=== PATIENT | male | born 1990 | race Caucasian/White ===

== ENCOUNTER 2017-05-22 05:22 | Emergency (ER) | payer OTHER ==
[2017-05-22 05:31] VITALS: BP 137/80; PULSE 94; RESP 18; TEMP 97.3
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
[2017-05-22 06:41] LABS: Hepatitis B Surface Ag Index 0.05
[2017-05-22 06:46] LABS: Hepatitis B Core IgM Index 0.02
[2017-05-22 06:58] LABS: Hepatitis C Virus IgG Ab Negative (Negative)
== END 2017-05-22 06:08 | disposition home or self-care (01) ==
LOC: EC 05:22
DX: Z20.5 Contact with and (suspected) exposure to viral hepatitis (principal); F17.200 Nicotine dependence, unspecified, uncomplicated
CPT/HCPCS: 36415; 80074; 99283

== ENCOUNTER 2019-11-20 23:16 | Emergency (ER) | payer OTHER ==
[2019-11-20] MEDS ORDERED: SODIUM CHLORIDE 0.9% 1,000 ML IV ONE (23:28)
[2019-11-20 23:29] VITALS: RESP 18; TEMP 98
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
[2019-11-20 23:39] LABS: Appearance,Urine Clear (Clear); Bilirubin,Urine Negative (Negative); Blood,Urine Small (Negative); Color,Urine Colorless; Glucose,Urine (UA) Negative (Negative); Ketones,Urine Negative (Negative); Leukocyte Esterase,Urine Negative (Negative); Nitrite,Urine Negative (Negative); Protein,Urine Negative (Negative); Specific Gravity,Urine 1.001 (1.001-1.035); Urobilinogen,Urine <2.0 mg/dL (<2.0)
[2019-11-20 23:53] LABS: Amphetamine Screen,Urine Not Detected (NotDetected); Barbiturate Screen,Urine Not Detected (NotDetected); Benzodiazepines Screen,Urine Not Detected (NotDetected); Cocaine Screen,Urine Not Detected (NotDetected); Methadone Screen, Urine Not Detected (NotDetected); Opiate Screen,Urine Not Detected (NotDetected); Oxycodone Screen, Urine Not Detected (NotDetected); Phencyclidine Screen,Urine Not Detected (NotDetected); Tricyclic Antidepressant,Urine Not Detected (NotDetected); Urn Cannabinoid Scrn Not Detected (NotDetected)
[2019-11-20 23:58] LABS: Basophils # (A) 0.1 k/uL (0-0.2); Basophils % (A) 1 %; Eosinophils # (A) 0.3 k/uL (0-0.7); Eosinophils % (A) 4 %; HCT 45.8 % (39.0-53.0); HGB 15.4 gm/dL (13.0-17.5); Lymphocytes # (A) 2.3 k/uL (1.0-4.8); Lymphocytes % (A) 30 %; MCH 30.3 pg (25.0-35.0); MCHC 33.5 g/dL (31.0-37.0); MCV 90.4 fL (80.0-100.0); Monocytes # (A) 0.7 k/uL (0-1.0); Monocytes % (A) 10 %; Neutrophils # (A) 4.1 k/uL (1.3-7.7); Neutrophils % (A) 53 %; Platelet Count 298 k/uL (150-450); RBC 5.07 m/uL (4.30-5.90); RDW 12.3 % (11.5-15.5); WBC 7.7 k/uL (3.8-10.6)
[2019-11-20 23:59] LABS: ALT 37 U/L (4-49); AST 65 U/L (17-59); African American GFR (CKD) >90 (>60 ml/min/1.73 sqM); Albumin 5.2 g/dL (3.5-5.0); Alkaline Phosphatase 63 U/L (38-126); Anion Gap 13 mmol/L; Blood Urea Nitrogen 15 mg/dL (9-20); Calcium 9.8 mg/dL (8.4-10.2); Carbon Dioxide 22 mmol/L (22-30); Chloride 110 mmol/L (98-107); Glucose 108 mg/dL (74-99); Magnesium 2.2 mg/dL (1.6-2.3); Non-African American GFR(CKD) >90 (>60 ml/min/1.73 sqM); Potassium 4.1 mmol/L (3.5-5.1); Sodium 145 mmol/L (137-145); Total Bilirubin 0.5 mg/dL (0.2-1.3); Total Protein 8.8 g/dL (6.3-8.2)
[2019-11-21 00:18] LABS: Alcohol 331 mg/dL
--- NOTE | 2019-11-21 00:18 | CT ---
EXAMINATION TYPE: CT brain nuha wo con DATE OF EXAM: 11/21/2019 COMPARISON: None HISTORY: Patient presents with head and neck pain after fall. CT DLP: 1268.3 mGycm Automated exposure control for dose reduction was used. Multiple axial sections were obtained from the skull base to T1 vertebra without contrast. Multiple a xial sections were obtained of the brain without contrast. FINDINGS: Ventricles have fairly normal size. There is no mass effect nor midline shift. There is no sign of in tracranial hemorrhage. The calvarium is intact. There is mucosal thickening ethmoid and maxillary sin uses. Cervical vertebra have normal alignment. There is degenerative disc space narrowing at C6-7. Facet patrick ints are intact. There is no evidence of a fracture. IMPRESSION: No acute intracranial abnormality. Sinusitis. Negative CT scan cervical spine. No fracture seen.
[2019-11-21 05:29] VITALS: BP 136/89; PULSE 91
== END 2019-11-21 05:30 | disposition home or self-care (01) ==
LOC: EC 23:16
DX: F10.129 Alcohol abuse with intoxication, unspecified (principal); S09.93XA Unspecified injury of face, initial encounter; R41.82 Altered mental status, unspecified; F17.200 Nicotine dependence, unspecified, uncomplicated; Y90.8 Blood alcohol level of 240 mg/100 ml or more; X58.XXXA Exposure to other specified factors, initial encounter
CPT/HCPCS: 36415; 80053; 83690; 83735; 85025; 81001; 80306; 72125; 70450; 99284; 96360; G0480; 80320

== ENCOUNTER 2021-09-06 09:55 | Emergency (ER) | payer OTHER ==
[2021-09-06 10:04] VITALS: BP 155/95; PULSE 102; RESP 18; TEMP 98.4
--- NOTE | 2021-09-06 10:31 | XR ---
EXAMINATION TYPE: XR KUB DATE OF EXAM: 09/06/2021 COMPARISON: NONE HISTORY: 30 years Male. STUDY INDICATION GIVEN: abdominal pain . TECHNIQUE: Upright abdominal radiograph IMPRESSION: Large stool burden. No intestinal obstruction. No abnormal calcification seen. No evidence for organo megaly. No significant osseous abnormality seen.
[2021-09-06] MEDS ORDERED: IOPAMIDOL CONTRAST (ORAL USE) VIAL PO PRN (10:38)
[2021-09-06 10:43] LABS: Basophils # (A) 0.1 k/uL (0-0.2); Basophils % (A) 1 %; Eosinophils # (A) 0.4 k/uL (0-0.7); Eosinophils % (A) 6 %; HCT 45.5 % (39.0-53.0); HGB 15.1 gm/dL (13.0-17.5); Lymphocytes # (A) 1.2 k/uL (1.0-4.8); Lymphocytes % (A) 16 %; MCH 31.5 pg (25.0-35.0); MCHC 33.2 g/dL (31.0-37.0); MCV 95.1 fL (80.0-100.0); Mean Platelet Volume 6.6; Monocytes # (A) 0.7 k/uL (0-1.0); Monocytes % (A) 9 %; Neutrophils # (A) 5.1 k/uL (1.3-7.7); Neutrophils % (A) 67 %; Platelet Count 314 k/uL (150-450); RBC 4.78 m/uL (4.30-5.90); RDW 13.1 % (11.5-15.5); WBC 7.5 k/uL (3.8-10.6)
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
[2021-09-06 10:52] LABS: ALT 41 U/L (4-49); AST 46 U/L (17-59); African American GFR (CKD) >90 (>60 ml/min/1.73 sqM); Alkaline Phosphatase 83 U/L (38-126); Amylase 87 U/L (30-110); Anion Gap 9 mmol/L; Blood Urea Nitrogen 12 mg/dL (9-20); Carbon Dioxide 23 mmol/L (22-30); Chloride 106 mmol/L (98-107); Creatine Kinase 555 U/L (55-170); Glucose 109 mg/dL (74-99); Lipase 148 U/L (23-300); Non-African American GFR(CKD) >90 (>60 ml/min/1.73 sqM); Potassium 4.2 mmol/L (3.5-5.1); Sodium 138 mmol/L (137-145); Total Bilirubin 0.8 mg/dL (0.2-1.3); Total Protein 8.7 g/dL (6.3-8.2)
[2021-09-06 11:04] LABS: Prothrombin Time 10.4 sec (9.0-12.0)
[2021-09-06 11:05] LABS: Partial Thromboplastin Time 21.8 sec (22.0-30.0)
[2021-09-06] MEDS ORDERED: HYDROmorphone 1 MG/ML 1 ML SYRINGE IVP STA (11:19)
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
== END 2021-09-06 12:55 | disposition home or self-care (01) ==
LOC: EC 09:55
DX: S30.1XXA Contusion of abdominal wall, initial encounter (principal); F17.200 Nicotine dependence, unspecified, uncomplicated; F12.90 Cannabis use, unspecified, uncomplicated; Y93.55 Activity, bike riding
CPT/HCPCS: 80053; 82150; 82550; 83605; 83690; 85025; 85610; 85730; 74018; 74177; 99284; 96374; J1170; Q9967

== ENCOUNTER 2022-01-25 19:48 | Emergency (ER) | payer OTHER ==
--- NOTE | 2022-01-25 20:17 | ED ---
General Adult HPI - General Chief complaint: Alcohol Stated complaint: [facility] Clearance Time Seen by Provider: 01/25/22 20:12 Source: patient Mode of arrival: ambulatory Limitations: no limitations - History of Present Illness Initial comments: Dictation was produced using [employer] dictation software. please excuse any grammatical, word or spelling errors. Chief Complaint: 31-year-old male brought in to the emergency department by [place] police for alcohol intoxication History of Present Illness: 31-year-old male is brought in by law enforcement. Patient is uncooperative. History of present illness obtained from enforcement was at the bedside. State that they were called for domestic situation. They arrived on scene and arrested the patient. Several alcoholic beverages. He to come back to the police station were he was given news that upset him. He began to act unresponsive. Did have really high alcohol levels. The sternal rotation however he did not respond. Patient is uncooperative with triage nurse. Unable to obtain ROS secondary to mental status. PHYSICAL EXAM: General Impression: Alert, inebriated, smells of EtOH, not in acute distress, handcuffed HEENT: Normocephalic atraumatic, extra-ocular movements intact, pupils equal and reactive to light bilaterally, mucous membranes moist. Cardiovascular: Heart regular rate and rhythm Chest: Able to complete full sentences, no retractions, no tachypnea Abdomen: abdomen soft, non-tender, non-distended, no organomegaly Musculoskeletal: Pulses present and equal in all extremities, no peripheral edema Motor: no focal deficits noted Neurological: CN II-XII grossly intact, no focal motor or sensory deficits noted Skin: Intact with no visualized rashes Psych: Aggressive ED course: 31-year-old male brought in to the emergency department for medical clearance for longterm. Patient is alcohol intoxicated. Initially he was behaving as if he was unresponsive in triage however when we move him from the wheelchair to the bed he began cursing at all of us. Patient no apparent distress. Laboratory evaluation obtained. CBC unremarkable. Metabolic panel shows sodium 147. Renal markers within acceptable limits. Serum alcohol 455. Patient reevaluated at 9:09 PM found to be stable medical condition. He is responsive however he is intoxicated of alcohol. According to family lawyer they have medical staff at the longterm they can manage alcohol withdrawals. Patient clear for longterm. - Related Data Previous Rx's Medication Instructions Recorded Ibuprofen 800 mg PO Q6HR PRN #20 tablet 09/06/21 Allergies Allergy/AdvReac Type Severity Reaction Status Date / Time No Known Allergies Allergy Verified 01/25/22 20:11 Review of Systems ROS Statement: Those systems with pertinent positive or pertinent negative responses have been documented in the HPI. ROS Other: All systems not noted in ROS Statement are negative. Past Medical History Past Medical History: No Reported History History of Any Multi-Drug Resistant Organisms: None Reported Past Surgical History: No Surgical Hx Reported Past Anesthesia/Blood Transfusion Reactions: No Reported Reaction Past Psychological History: No Psychological Hx Reported Smoking Status: Current every day smoker Past Alcohol Use History: Occasional Past Drug Use History: Marijuana - Past Family History Father Family Medical History: Diabetes Mellitus (Father has diabetes) General Exam Limitations: no limitations Course Vital Signs 01/25/22 01/25/22 19:52 20:34 Temperature 98.0 F 98.9 F Pulse Rate 66 98 Respiratory 18 20 Rate Blood Pressure 111/68 145/63 O2 Sat by Pulse 100 99 Oximetry Medical Decision Making - Lab Data Result diagrams: 01/25/22 20:27 01/25/22 20:27 Lab Results 01/25/22 01/25/22 Range/Units 20:27 20:27 WBC 7.5 (3.8-10.6) k/uL RBC 5.06 (4.30-5.90) m/uL Hgb 17.1 (13.0-17.5) gm/dL Hct 49.3 (39.0-53.0) % MCV 97.4 (80.0-100.0) fL MCH 33.7 (25.0-35.0) pg MCHC 34.6 (31.0-37.0) g/dL RDW 13.6 (11.5-15.5) % Plt Count 327 (150-450) k/uL MPV 6.6 Neutrophils % 57 % Lymphocytes % 19 % Monocytes % 13 % Eosinophils % 7 % Basophils % 1 % Neutrophils # 4.3 (1.3-7.7) k/uL Lymphocytes # 1.5 (1.0-4.8) k/uL Monocytes # 1.0 (0-1.0) k/uL Eosinophils # 0.5 (0-0.7) k/uL Basophils # 0.1 (0-0.2) k/uL Sodium 147 H (137-145) mmol/L Potassium 3.8 (3.5-5.1) mmol/L Chloride 104 (98-107) mmol/L Carbon Dioxide 29 (22-30) mmol/L Anion Gap 14 mmol/L BUN 7 L (9-20) mg/dL Creatinine 1.28 H (0.66-1.25) mg/dL Est GFR (CKD-EPI)AfAm 85 (>60 ml/min/1.73 sqM) Est GFR (CKD-EPI)NonAf 74 (>60 ml/min/1.73 sqM) Glucose 140 H (74-99) mg/dL Calcium 9.9 (8.4-10.2) mg/dL Serum Alcohol 455 H* mg/dL Disposition Clinical Impression: Alcohol intoxication Disposition: OTHER INSTITUTION NOT DEFINED Condition: Fair Instructions (If sedation given, give patient instructions): Alcohol Intoxication (ED) Referrals: None,Stated [Primary Care Provider] - 1-2 days - Out of Hospital Transfer - Req. Specs Out of Hospital Transfer - Requested Specifics: Other Non-Acute (longterm)
[2022-01-25 20:37] VITALS: TEMP 98.9
[2022-01-25 20:37] LABS: Basophils # (A) 0.1 k/uL (0-0.2); Basophils % (A) 1 %; Eosinophils # (A) 0.5 k/uL (0-0.7); Eosinophils % (A) 7 %; HCT 49.3 % (39.0-53.0); HGB 17.1 gm/dL (13.0-17.5); Lymphocytes # (A) 1.5 k/uL (1.0-4.8); Lymphocytes % (A) 19 %; MCH 33.7 pg (25.0-35.0); MCHC 34.6 g/dL (31.0-37.0); MCV 97.4 fL (80.0-100.0); Mean Platelet Volume 6.6; Monocytes % (A) 13 %; Neutrophils # (A) 4.3 k/uL (1.3-7.7); Neutrophils % (A) 57 %; Platelet Count 327 k/uL (150-450); RBC 5.06 m/uL (4.30-5.90); RDW 13.6 % (11.5-15.5); WBC 7.5 k/uL (3.8-10.6)
[2022-01-25 20:48] LABS: Calcium 9.9 mg/dL (8.4-10.2); Potassium 3.8 mmol/L (3.5-5.1)
[2022-01-25 21:18] VITALS: BP 126/63; PULSE 82; RESP 18
== END 2022-01-25 21:18 | disposition other institution (70) ==
LOC: EC 19:48
DX: F10.129 Alcohol abuse with intoxication, unspecified (principal); F17.200 Nicotine dependence, unspecified, uncomplicated
CPT/HCPCS: 36415; 80048; 85025; 99283; G0480; 80320

== ENCOUNTER 2022-05-05 16:45 | Observation (INO) | payer OTHER ==
[2022-05-05] MEDS ORDERED: SODIUM CHLORIDE 0.9% 1,000 ML IV ONE ×2 (16:51→18:48)
[2022-05-05] MEDS ORDERED: SODIUM CHLORIDE 0.9% 500 ML 500 ML IV ONE ×2 (16:51→18:56)
[2022-05-05 16:53] VITALS: BP 133/69; PULSE 122; RESP 18
--- NOTE | 2022-05-05 16:56 | ED ---
General Adult HPI - General Chief complaint: Altered Mental Status Stated complaint: AMS Source: patient, EMS, RN notes reviewed, old records reviewed Mode of arrival: EMS - History of Present Illness Initial comments: This is a 31-year-old male who presents emergency Department after abdomen brought in by EMS. Patient was found sitting on a curb and according to bystanders he had a syncopal episode. Patient's according to EMS is very intoxicated patient agrees that he has been drinking. Patient denies any drug use. Patient doesn't give any further history but he has no complaints and no pain. - Related Data Previous Rx's Medication Instructions Recorded Ibuprofen 800 mg PO Q6HR PRN #20 tablet 09/06/21 Allergies Allergy/AdvReac Type Severity Reaction Status Date / Time No Known Allergies Allergy Verified 01/25/22 20:11 Review of Systems ROS Statement: Those systems with pertinent positive or pertinent negative responses have been documented in the HPI. ROS Other: All systems not noted in ROS Statement are negative. Past Medical History Past Medical History: No Reported History History of Any Multi-Drug Resistant Organisms: None Reported Past Surgical History: No Surgical Hx Reported Past Anesthesia/Blood Transfusion Reactions: No Reported Reaction Past Psychological History: No Psychological Hx Reported Smoking Status: Current every day smoker Past Alcohol Use History: Occasional Past Drug Use History: Marijuana - Past Family History Father Family Medical History: Diabetes Mellitus (Father has diabetes) General Exam - General Exam Comments Initial Comments: GENERAL: Patient is well-developed and well-nourished. Patient is nontoxic and well- hydrated and is in no acute distress. Patient appears very intoxicated ENT: Neck is soft and supple. No significant lymphadenopathy is noted. Oropharynx is clear. Moist mucous membranes. Neck has full range of motion without eliciting any pain. EYES: The sclera were anicteric and conjunctiva were pink and moist. Extraocular move ments were intact and pupils were equal round and reactive to light. Eyelids were unremarkable. PULMONARY: Unlabored respirations. Good breath sounds bilaterally. No audible rales rhonchi or wheezing was noted. CARDIOVASCULAR: Patient is tachycardic at 115 beats a minute ABDOMEN: Soft and nontender with normal bowel sounds. SKIN: Skin is clear with no lesions or rashes and otherwise unremarkable. NEUROLOGIC: Patient is alert and oriented difficult to assess since the patient does not an swer questions. Does know who he is and where it is. Cranial nerves II through XII are grossly intact. Symmetrical smile. MUSCULOSKELETAL: Normal extremities with adequate strength and full range of motion. LYMPHATICS: No significant lymphadenopathy is noted PSYCHIATRIC: Unable to assess at this time Course Vital Signs 05/05/22 16:49 Pulse Rate 122 H Respiratory 18 Rate Blood Pressure 133/69 O2 Sat by Pulse 95 Oximetry Medical Decision Making - Medical Decision Making EKG shows sinus tachycardia at 114 bpm VT interval is 201 QRS is 98 QT interval 3:30 QTC is 380. Patient's EKG shows no ST segment elevation or depression. Patient is highly intoxicated. I spoke with some physicians as though he did not want to admit the patient I spoke with Dr. Robbins she agreed the patient admitted the patient admitted the patient wrote admitting orders. - Lab Data Result diagrams: 05/05/22 16:55 05/05/22 16:55 Lab Results 05/05/22 05/05/22 Range/Units 16:55 16:55 WBC 5.6 (3.8-10.6) k/uL RBC 4.30 (4.30-5.90) m/uL Hgb 13.8 (13.0-17.5) gm/dL Hct 38.8 L (39.0-53.0) % MCV 90.3 (80.0-100.0) fL MCH 32.1 (25.0-35.0) pg MCHC 35.5 (31.0-37.0) g/dL RDW 12.2 (11.5-15.5) % Plt Count 291 (150-450) k/uL MPV 7.0 Neutrophils % 53 % Lymphocytes % 29 % Monocytes % 6 % Eosinophils % 8 % Basophils % 2 % Neutrophils # 3.0 (1.3-7.7) k/uL Lymphocytes # 1.6 (1.0-4.8) k/uL Monocytes # 0.3 (0-1.0) k/uL Eosinophils # 0.5 (0-0.7) k/uL Basophils # 0.1 (0-0.2) k/uL Sodium 149 H (137-145) mmol/L Potassium 3.6 (3.5-5.1) mmol/L Chloride 114 H (98-107) mmol/L Carbon Dioxide 22 (22-30) mmol/L Anion Gap 13 mmol/L BUN 12 (9-20) mg/dL Creatinine 1.16 (0.66-1.25) mg/dL Est GFR (CKD-EPI)AfAm >90 (>60 ml/min/1.73 sqM) Est GFR (CKD-EPI)NonAf 84 (>60 ml/min/1.73 sqM) Glucose 133 H (74-99) mg/dL Calcium 9.0 (8.4-10.2) mg/dL Magnesium 1.9 (1.6-2.3) mg/dL Total Bilirubin 0.2 (0.2-1.3) mg/dL AST 25 (17-59) U/L ALT 18 (4-49) U/L Alkaline Phosphatase 51 (38-126) U/L Total Protein 7.3 (6.3-8.2) g/dL Albumin 4.3 (3.5-5.0) g/dL Serum Alcohol 347 H* mg/dL Disposition Clinical Impression: Alcoholic intoxication, Syncope Disposition: ADMITTED IP TO THIS HOSP Referrals: None,Stated [Primary Care Provider] - 1-2 days Time of Disposition: 18:24
[2022-05-05 17:06] LABS: Basophils # (A) 0.1 k/uL (0-0.2); Basophils % (A) 2 %; Eosinophils # (A) 0.5 k/uL (0-0.7); Eosinophils % (A) 8 %; HCT 38.8 % (39.0-53.0); HGB 13.8 gm/dL (13.0-17.5); Lymphocytes # (A) 1.6 k/uL (1.0-4.8); Lymphocytes % (A) 29 %; MCH 32.1 pg (25.0-35.0); MCHC 35.5 g/dL (31.0-37.0); MCV 90.3 fL (80.0-100.0); Monocytes # (A) 0.3 k/uL (0-1.0); Monocytes % (A) 6 %; Neutrophils % (A) 53 %; Platelet Count 291 k/uL (150-450); RDW 12.2 % (11.5-15.5); WBC 5.6 k/uL (3.8-10.6)
[2022-05-05 17:11] LABS: ALT 18 U/L (4-49); AST 25 U/L (17-59); African American GFR (CKD) >90 (>60 ml/min/1.73 sqM); Albumin 4.3 g/dL (3.5-5.0); Alkaline Phosphatase 51 U/L (38-126); Anion Gap 13 mmol/L; Blood Urea Nitrogen 12 mg/dL (9-20); Carbon Dioxide 22 mmol/L (22-30); Chloride 114 mmol/L (98-107); Glucose 133 mg/dL (74-99); Magnesium 1.9 mg/dL (1.6-2.3); Non-African American GFR(CKD) 84 (>60 ml/min/1.73 sqM); Potassium 3.6 mmol/L (3.5-5.1); Sodium 149 mmol/L (137-145); Total Bilirubin 0.2 mg/dL (0.2-1.3); Total Protein 7.3 g/dL (6.3-8.2)
[2022-05-05 17:21] LABS: Alcohol 347 mg/dL
[2022-05-05] MEDS ORDERED: THIAMINE 100 MG TAB PO SCH (17:30)
[2022-05-05] MEDS ORDERED: LORazepam 2 MG/ML INJ IV PRN ×3 (18:48)
[2022-05-05] MEDS ORDERED: THIAMINE 100 MG/ML 2 ML VIAL IM STA (18:48)
--- NOTE | 2022-05-05 20:35 | CT ---
EXAMINATION TYPE: CT brain wo con CT DLP: 1232.4 mGycm, Automated exposure control for dose reduction was used. DATE OF EXAM: 05/05/2022 7:58 PM COMPARISON: CT brain on 12/10/2019. CLINICAL INDICATION:Male, 31 years old with history of ALCOHOL INTOXICATION, ALCOHOL INTOXICATION pos s fall TECHNIQUE: Brain: Multiple axial CT images of the brain were obtained without IV contrast. FINDINGS: Motion artifact limits evaluation. Brain: Extra-axial spaces: No abnormal extra-axial fluid collections. Ventricular system: Within normal limits Cerebral parenchyma: No acute intraparenchymal hemorrhage or mass effect. The gupta-white junction is well differentiated. Cerebellum: Unremarkable. Mass effect: No evidence of midline shift. Intracranial vasculature: unremarkable Soft tissues: Normal. Calvarium/osseous structures: No depressed skull fracture. Paranasal sinuses and mastoid air cells: Mild scattered paranasal sinus disease. Periapical cyst note d within the right maxillary sinus. Visualized orbits: Orbital contents are intact. IMPRESSION: 1. No acute intracranial process. 2. Mild to moderate paranasal sinus disease.
--- NOTE | 2022-05-05 21:12 | CT ---
EXAMINATION TYPE: CT cervical spine wo con CT DLP: 338.7 mGycm, Automated exposure control for dose reduction was used. DATE OF EXAM: 05/05/2022 8:34 PM COMPARISON: C-spine 11/21/2019. CLINICAL INDICATION:Male, 31 years old with history of possible fall rule out fracture;, ETOH neck pa in after fall TECHNIQUE: Axial CT images from the skull base to the inferior aspect of T2 we obtained without intra venous contrast. Coronal and sagittal reformatted images were also reviewed. FINDINGS: Fracture: None. Osseous structures: Multilevel degenerative disc disease changes with endplate spurring and disc oste ophyte complex's. Periodontal disease noted. Vertebral alignment: Within normal limits. Spinal canal/Neural Foramina: No evidence of significant spinal canal narrowing. No evidence for sign ificant neural foraminal stenosis.Neck soft tissues: Prevertebral soft tissues are within normal limi ts. Other: The airway is patent. The lung apices are clear. Paranasal sinus disease. IMPRESSION: 1. No evidence of cervical spine fracture. 2. Mild multilevel degenerative disc disease. 3. Moderate paranasal sinus disease. 4. Moderate periodontal disease.
--- NOTE | 2022-05-05 22:14 | P.HPIM ---
History of Present Illness H&P Date: 05/05/22 Chief Complaint: Alcohol intoxication 31-year-old male without significant past medical history presented to the emergency room by ambulance. The patient was found by EMS sitting on it. EMS noticed the patient was intoxicated the patient told them that he was drinking. Currently the patient is oriented 2 alcohol level on presentation is a 347. Patient denies any chest pain or shortness of breath. Patient stated that he does not want to be admitted to the hospital and he wants to go home. The patient was informed that he only can be discharged if you have safe discharge plan including sober tour driver a family member to take him home after repeating alcohol level getting the results of the computed tomography scan of the head and CT of the cervical spine. Patient denies any fever or chills or nausea vomiting abdominal pain diarrhea or constipation. No recent travel sick contacts. Review of systems: All 14 review of systems evaluated and all negative except for above. Physical examination: General: Alert oriented 2 no distress, appears at stated age Derm: warm, dry Head: atraumatic, normocephalic, symmetric Eyes: EOMI, no lid lag, anicteric sclera Mouth: no lip lesion, mucus membranes moist Cardiovascular: S1S2 reg, no murmur, positive posterior tibial pulse bilateral, Lungs: CTA bilateral, no rhonchi, no rales , no accessory muscle use Abdominal: soft, nontender to palpation, no guarding, no appreciable organomegaly Ext: no gross muscle atrophy, no edema, no contractures Neuro: CN II-XI grossly intact, no focal neuro deficits Psych: Alert oriented 2 Assessment and plan: #Alcohol intoxication -Patient had similar presentation to the emergency room. He denies any alcohol dependence with history of alcohol withdrawal -Received a liter and half in emergency room -Plan to discharge home after repeating alcohol level, check an computed tomography scan of the head in the cervical spine -Patient can be discharged home if he sober and alert oriented 3. -Continue to trend alkaline level -Pending computed tomography scan of the head and cervical spine -Pending drug screen Past Medical History Past Medical History: No Reported History History of Any Multi-Drug Resistant Organisms: None Reported Past Surgical History: No Surgical Hx Reported Past Anesthesia/Blood Transfusion Reactions: No Reported Reaction Past Psychological History: No Psychological Hx Reported Smoking Status: Current every day smoker Past Alcohol Use History: Occasional Past Drug Use History: Marijuana - Past Family History Father Family Medical History: Diabetes Mellitus (Father has diabetes) Medications and Allergies Home Medications Medication Instructions Recorded Confirmed Type No Known Home Medications 05/05/22 05/05/22 History Allergies Allergy/AdvReac Type Severity Reaction Status Date / Time No Known Allergies Allergy Verified 05/05/22 18:35 Physical Exam Vitals: Vital Signs Pulse Resp BP Pulse Ox 05/05/22 16:49 122 H 18 133/69 95 Intake and Output 05/05/22 05/05/22 05/05/22 06:59 14:59 22:59 Other: Weight 86.183 kg Results CBC & Chem 7: 05/05/22 16:55 05/05/22 16:55 Labs: Abnormal Lab Results - Last 24 Hours (Table) 05/05/22 05/05/22 Range/Units 16:55 16:55 Hct 38.8 L (39.0-53.0) % Sodium 149 H (137-145) mmol/L Chloride 114 H (98-107) mmol/L Glucose 133 H (74-99) mg/dL Serum Alcohol 347 H* mg/dL
--- NOTE | 2022-05-05 22:20 | P.DS ---
Providers Date of admission: 05/05/22 18:49 Expected date of discharge: 05/05/22 Attending physician: Hernandez Talley MD Primary care physician: Stated None Hospital Course: 31-year-old male without significant past medical history presented to the emergency room with alcohol intoxication. Patient told me that he does not want to be admitted to the hospital RN in the emergency room Pacheco was present during this conversation. Patient was advised to wait until his computed tomography scan of the head, CT of the cervical spine, and repeat blood alcohol level is available before discharging him home to make sure the patient has safe discharge plan. RN in emergency room Pacheco told me that the patient's brother came to the emergency room and the patient eloped the emergency room with his brother and he left the hospital AGAINST MEDICAL ADVICE. RN stated that the patient refused to sign AMA paper. Patient did not wait for his repeat alcohol level results or to discuss discharge plans. Patient left AGAINST MEDICAL ADVICE from ER Plan - Discharge Summary New Discharge Prescriptions: No Action No Known Home Medications Discharge Medication List No Known Home Medications 05/05/22 [History] Follow up Appointment(s)/Referral(s): None,Stated [Primary Care Provider] - 1-2 days
[2022-05-06 02:29] LABS: Urine Alcohol Positive (Negative); Urine Barbiturate Negative (Negative); Urine Cocaine Negative (Negative); Urine Methadone Negative (Negative); Urine Opiates Negative (Negative); Urine Phencyclidine Negative (Negative)
[2022-05-06] MEDS ORDERED: THIAMINE 100 MG TAB PO SCH (07:30)
== END 2022-05-05 22:33 | disposition home or self-care (01) ==
LOC: EC 16:45 → 6NMEDSUR 18:49
PROVIDERS: ADMIT Hospitalist; ATTEND Hospitalist
DX: F10.229 Alcohol dependence with intoxication, unspecified (principal); Y90.8 Blood alcohol level of 240 mg/100 ml or more; F17.200 Nicotine dependence, unspecified, uncomplicated; R00.0 Tachycardia, unspecified; K05.6 Periodontal disease, unspecified; M51.9 Unspecified thoracic, thoracolumbar and lumbosacral intervertebral disc disorder; J34.89 Other specified disorders of nose and nasal sinuses; Z53.29 Procedure and treatment not carried out because of patient's decision for other reasons; Z83.3 Family history of diabetes mellitus
CPT/HCPCS: 96360; 96361; 99285; 36415; 93005; 80053; 83735; 85025; 80306; 72125; 70450; G0378; G0480; 80320

== ENCOUNTER 2022-05-28 16:23 | Observation (INO) | payer OTHER ==
[2022-05-28 17:03] LABS: Basophils # (A) 0.2 k/uL (0-0.2); Basophils % (A) 2 %; Eosinophils # (A) 0.5 k/uL (0-0.7); Eosinophils % (A) 6 %; HCT 45.2 % (39.0-53.0); HGB 15.3 gm/dL (13.0-17.5); Lymphocytes # (A) 2.2 k/uL (1.0-4.8); Lymphocytes % (A) 27 %; MCH 30.2 pg (25.0-35.0); MCHC 33.8 g/dL (31.0-37.0); MCV 89.4 fL (80.0-100.0); Mean Platelet Volume 6.8; Monocytes # (A) 0.6 k/uL (0-1.0); Monocytes % (A) 7 %; Neutrophils # (A) 4.7 k/uL (1.3-7.7); Neutrophils % (A) 56 %; Platelet Count 344 k/uL (150-450); RBC 5.06 m/uL (4.30-5.90); WBC 8.4 k/uL (3.8-10.6)
[2022-05-28 17:20] LABS: Calcium 9.1 mg/dL (8.4-10.2); Magnesium 1.9 mg/dL (1.6-2.3); Total Bilirubin 0.3 mg/dL (0.2-1.3); Total Protein 8.8 g/dL (6.3-8.2)
[2022-05-28] MEDS ORDERED: LORazepam 2 MG/ML INJ IV STA (17:20)
[2022-05-28] MEDS ORDERED: ZIPRASIDONE 20 MG VIAL IM STA (17:41)
--- NOTE | 2022-05-28 17:48 | ED ---
General Adult HPI - General Chief complaint: Alcohol Stated complaint: Fall/ETOH Time Seen by Provider: 05/28/22 16:30 Source: patient, EMS, RN notes reviewed, old records reviewed - History of Present Illness Initial comments: This is a 31-year-old male who presents emergency department via EMS according to them patient was on a porch and had been drinking all afternoon and he fell off the porch and EMS was then called to scene. Patient was unable to give any significant history because he was so intoxicated. There were no signs of trauma other than a little bit of a bloody lip. Patient denied any drug use. Patient did admit to drinking alcohol no other history was available at this time secondary to the fact that no one came with the patient and the patient is unable to give any further history or does not desire to give any further history. - Related Data Home Medications Medication Instructions Recorded Confirmed No Known Home Medications 05/05/22 05/28/22 Allergies Allergy/AdvReac Type Severity Reaction Status Date / Time No Known Allergies Allergy Verified 05/28/22 19:29 Review of Systems ROS Statement: Those systems with pertinent positive or pertinent negative responses have been documented in the HPI. ROS Other: All systems not noted in ROS Statement are negative. Past Medical History Past Medical History: No Reported History History of Any Multi-Drug Resistant Organisms: None Reported Past Surgical History: No Surgical Hx Reported Past Anesthesia/Blood Transfusion Reactions: No Reported Reaction Past Psychological History: No Psychological Hx Reported Smoking Status: Current every day smoker Past Alcohol Use History: Occasional Past Drug Use History: Marijuana - Past Family History Father Family Medical History: Diabetes Mellitus (Father has diabetes) General Exam - General Exam Comments Initial Comments: GENERAL: Patient is well-developed and well-nourished. Patient is nontoxic and well- hydrated and is in no acute distress. Patient is highly intoxicated ENT: Neck is soft and supple. No significant lymphadenopathy is noted. Oropharynx is clear. Moist mucous membranes. Neck has full range of motion without eliciting any pain. EYES: The sclera were anicteric and conjunctiva were pink and moist. Extraocular movements were intact and pupils were equal round and reactive to light. Eyelids were unremarkable. PULMONARY: Unlabored respirations. Good breath sounds bilaterally. No audible rales rhonchi or wheezing was noted. CARDIOVASCULAR: There is a regular rate and rhythm without any murmurs gallops or rubs. ABDOMEN: Soft and nontender with normal bowel sounds. SKIN: Small abrasion to the lower lip NEUROLOGIC: Patient is alert and oriented 1. I see no obvious signs of trauma. Cranial nerves II through XII are grossly intact. Motor and sensory are also intact. Normal speech, volume and content. Symmetrical smile. MUSCULOSKELETAL: Normal extremities with adequate strength and full range of motion. LYMPHATICS: No significant lymphadenopathy is noted PSYCHIATRIC: Unable to assess Course Vital Signs 05/28/22 05/28/22 16:25 18:36 Temperature 98.4 F Pulse Rate 64 83 Respiratory 18 18 Rate Blood Pressure 128/83 122/68 O2 Sat by Pulse 94 L Oximetry Procedures - Restraint - Face to Face Restraint Occurrence 1 Patient's Immediate Situation: Endangers self safety, Endangers others' safety Patient's Reaction to the Intervention: Uncooperative, Combative Patient's Medical & Behavioral Condition: Agitated Need to Continue or Terminate Restraint or Seclusion: Continue Face to Face Eval of Restraint Date: 05/28/22 Face to Face Eval of Restraint Time: 17:41 Medical Decision Making - Medical Decision Making Patient's CT of the brain and C-spine showed no acute abnormality. I spoke with sounds of physicians and they agree to admit the patient admitted the patient wrote admitting orders. - Lab Data Result diagrams: 05/28/22 16:53 05/28/22 16:53 Lab Results 05/28/22 05/28/22 Range/Units 16:53 16:53 WBC 8.4 (3.8-10.6) k/uL RBC 5.06 (4.30-5.90) m/uL Hgb 15.3 (13.0-17.5) gm/dL Hct 45.2 (39.0-53.0) % MCV 89.4 (80.0-100.0) fL MCH 30.2 (25.0-35.0) pg MCHC 33.8 (31.0-37.0) g/dL RDW 13.0 (11.5-15.5) % Plt Count 344 (150-450) k/uL MPV 6.8 Neutrophils % 56 % Lymphocytes % 27 % Monocytes % 7 % Eosinophils % 6 % Basophils % 2 % Neutrophils # 4.7 (1.3-7.7) k/uL Lymphocytes # 2.2 (1.0-4.8) k/uL Monocytes # 0.6 (0-1.0) k/uL Eosinophils # 0.5 (0-0.7) k/uL Basophils # 0.2 (0-0.2) k/uL Sodium 147 H (137-145) mmol/L Potassium 4.0 (3.5-5.1) mmol/L Chloride 108 H (98-107) mmol/L Carbon Dioxide 27 (22-30) mmol/L Anion Gap 12 mmol/L BUN 14 (9-20) mg/dL Creatinine 1.36 H (0.66-1.25) mg/dL Est GFR (CKD-EPI)AfAm 79 (>60 ml/min/1.73 sqM) Est GFR (CKD-EPI)NonAf 68 (>60 ml/min/1.73 sqM) Glucose 122 H (74-99) mg/dL Calcium 9.1 (8.4-10.2) mg/dL Magnesium 1.9 (1.6-2.3) mg/dL Total Bilirubin 0.3 (0.2-1.3) mg/dL AST 36 (17-59) U/L ALT 22 (4-49) U/L Alkaline Phosphatase 97 (38-126) U/L Total Protein 8.8 H (6.3-8.2) g/dL Albumin 5.0 (3.5-5.0) g/dL Serum Alcohol 440 H* mg/dL Disposition Clinical Impression: Alcoholic intoxication Disposition: ADMITTED IP TO THIS HOSP Referrals: None,Stated [Primary Care Provider] - 1-2 days Time of Disposition: 19:37
--- NOTE | 2022-05-28 19:35 | CT ---
EXAMINATION TYPE: CT brain cspine wo con DATE OF EXAM: 05/28/2022 COMPARISON: CT brain 05/05/2022 11/20/2019 HISTORY: Fall. Pain. CT DLP: mGycm Automated exposure control for dose reduction was used. Images of the brain and cervical spine obtained with no contrast. Ventricles have normal size. There is no mass effect or midline shift. No sign of intracranial hemorr cyndi. Calvarium is intact. There is normal aeration of the mastoid sinuses. There is some mucosal thi ckening in the ethmoid and maxillary sinuses. Nasal bone is intact. The cervical vertebra have normal alignment. No compression fracture. There is C6-7 disc space narrow ing and spur formation. Facet joints are intact. No fracture seen. IMPRESSION: Negative CT scan of the brain. Sinusitis is noted. Sinusitis increased compared to old exam. C6-7 degenerative disc space narrowing. No fracture seen. No adverse change compared to old exam.
[2022-05-28] MEDS ORDERED: SODIUM CHLORIDE 0.9% 1,000 ML IV ONE (19:37)
[2022-05-28] MEDS ORDERED: THIAMINE 100 MG/ML 2 ML VIAL IM STA (19:39)
[2022-05-28] MEDS ORDERED: LORazepam 2 MG/ML INJ IV PRN ×3 (19:39)
[2022-05-28] MEDS ORDERED: chlordiazePOXIDE 25 MG CAP PO PRN ×4 (19:41)
[2022-05-28] MEDS: SODIUM CHLORIDE 0.9% 1,000 ML IV SCH (20:47)
--- NOTE | 2022-05-29 02:23 | P.HPIM ---
History of Present Illness H&P Date: 05/28/22 Chief Complaint: Alcohol intoxication 31-year-old male with no significant past medical history Patient was brought in by EMS after sustaining a fall at home he was sitting at the porch drinking heavily when suddenly has sustained a fall EMS notified and was brought in for evaluation CT imaging of the head and neck showed no acute injuries blood work showed elevated alcohol level and acute kidney injury. Patient unable to provide any meaningful history as he was uncooperative seems to be still slightly intoxicated and agitated Review of Systems ROS unobtainable: due to mental status Past Medical History Past Medical History: No Reported History History of Any Multi-Drug Resistant Organisms: None Reported Past Surgical History: No Surgical Hx Reported Past Anesthesia/Blood Transfusion Reactions: No Reported Reaction Past Psychological History: No Psychological Hx Reported Smoking Status: Current every day smoker Past Alcohol Use History: Occasional Past Drug Use History: Marijuana - Past Family History Father Family Medical History: Diabetes Mellitus Medications and Allergies Home Medications Medication Instructions Recorded Confirmed Type No Known Home Medications 05/05/22 05/28/22 History Allergies Allergy/AdvReac Type Severity Reaction Status Date / Time No Known Allergies Allergy Verified 05/28/22 19:29 Physical Exam Vitals: Vital Signs Temp Pulse Pulse Resp BP BP Pulse Ox 05/28/22 23:19 97 16 05/28/22 21:18 97.8 F 97 16 129/84 98 05/28/22 20:50 97 18 129/86 98 05/28/22 18:36 83 18 122/68 94 L 05/28/22 16:25 98.4 F 64 18 128/83 Intake and Output 05/28/22 05/28/22 05/29/22 14:59 22:59 06:59 Other: Voiding Method Toilet Urinal Incontinent Weight 79.379 kg 79.379 kg Patient declines physical exam Results CBC & Chem 7: 05/28/22 16:53 05/28/22 16:53 Labs: Abnormal Lab Results - Last 24 Hours (Table) 05/28/22 Range/Units 16:53 Sodium 147 H (137-145) mmol/L Chloride 108 H (98-107) mmol/L Creatinine 1.36 H (0.66-1.25) mg/dL Glucose 122 H (74-99) mg/dL Total Protein 8.8 H (6.3-8.2) g/dL Serum Alcohol 440 H* mg/dL Thrombosis Risk Factor Assmnt - Choose All That Apply Any of the Below Risk Factors Present?: No Other Risk Factors: No Other congenital or acquired thrombophilia - If yes, enter type in comment: No Thrombosis Risk Factor Assessment Level: Very Low Risk Assessment and Plan Assessment: Acute alcohol intoxication unknown drinking pattern Monitor for alcohol withdrawal syndrome Librium when necessary as needed per CIWA scale Thiamine twice a day by mouth IV fluid hydration Bedside sitter for safety Acute kidney injury IV fluid hydration with normal saline Avoid nephrotoxic meds Repeat BMP in the morning Accidental fall while intoxicated with alcohol CT imaging of the head and neck no acute pathology Possible discharge in the morning after patient's sobriety
[2022-05-29] MEDS: NICOTINE 14MG/24HR PATCH TRANSDERM SCH ×2 (03:34→07:52)
[2022-05-29] MEDS: SODIUM CHLORIDE 0.9% 1,000 ML IV SCH (03:34)
[2022-05-29 04:30] VITALS: RESP 14
[2022-05-29] MEDS ORDERED: THIAMINE 100 MG TAB PO SCH (07:30)
[2022-05-29 09:20] VITALS: BP 144/78; PULSE 73; TEMP 99
[2022-05-29 09:28] LABS: African American GFR (CKD) 102.4 (60.0-200.0); Anion Gap 14.7 mmol/L (10.00-18.00); BUN/Creat Ratio 10.27 Ratio (12.00-20.00); Blood Urea Nitrogen 11.3 mg/dL (9.0-27.0); Calcium 8.3 mg/dL (8.7-10.3); Carbon Dioxide 25.3 mmol/L (20.0-27.5); Non-African American GFR(CKD) 88.4 (60.0-200.0); Potassium 3.9 mmol/L (3.5-5.5)
--- NOTE | 2022-05-29 10:07 | P.DS ---
Providers Date of admission: 05/28/22 19:37 Expected date of discharge: 05/29/22 Attending physician: Inez Simpson MD Primary care physician: Stated None Hospital Course: Discharge Diagnosis: Acute alcohol intoxication, blood alcohol level initially 440. Patient clinically sober at time of discharge. Binge drinking behaviors, patient educated on the importance of avoiding binge drinking behaviors. Acute kidney injury, resolved Hypernatremia, resolved Hyperchloremia, resolved Life stressors, patient reports recent loss of his mother with scheduled later today. Hospital Course: 31-year-old male with no reported past medical history with the exception of nicotine dependence and occasional marijuana use. Patient presented to the emergency department on 05/28/22 secondary to alcohol intoxication resulting in a fall at home. Patient underwent a CT head and cervical spine which were negative for acute process, sinusitis was noted along with C6 through C7 degenerative disc narrowing without acute fractures. Regarding sinusitis, patient denied having any sinus complaints or congestion. Patient instructed if these develop to follow up with urgent care/PCP. CBC.. Upon admission unremarkable. CMP revealed hypernatremia with sodium of 147 and an acute kidney injury with BUN of 1.36. Serum alcohol 440. Patient monitored overnight with repeat BMP with morning labs. Repeat labs revealing resolution of hypernatremia and resolution of acute kidney injury. Patient reports that his mother recently and the is scheduled for later this afternoon. Patient reports that his sister that he had not seen since childhood was up from [place] and family was visiting and drinking prior to his mother's today. Patient reports he does not drink every day and has never been a daily drinker but admits to binge drinking behaviors yesterday with his family. Patient currently denies having any complaints including headache, lightheadedness, dizziness, chest pain, palpitations, shortness of breath, nausea, vomiting, or experiencing any numbness/tingling/weakness in his extremities. Patient reports he is anxious and needing to be discharged so he could get to his mother's . Family arrived to this facility to pick up worker patient. Patient agreed to stay until repeat labs resulted revealing resolution of TATA and previous hypernatremia. Patient medically stable for discharge. Patient educated on the importance of avoiding binge drinking behaviors and encouraged to stop smoking. Physical examination: Patient seen and examined at bedside. Vital signs reviewed and stable. General: Nontoxic, no distress and appears stated age. Derm: Skin warm and dry, normal coloration for ethnicity. Head: Atraumatic, normocephalic and symmetric. Eyes: EOMs intact, no lid lag, and anicteric sclera Mouth: no lip lesions, mucus membranes moist Cardiovascular: regular rate and rhythm with normal S1S2, no murmur, positive posterior tibial pulses bilaterally, and cap refill < 2 seconds. Lungs: Respirations even, regular, and unlabored on room air. Lungs CTA bilaterally, no rhonchi, no rales, no wheezing, and no accessory muscle usage. Abdominal: soft, nontender to palpation, no guarding, no appreciable organomegaly Ext: ROM intact. No gross muscle atrophy, no edema, no contractures Neuro: Speech clear, face symmetrical and CN II-XII grossly intact with no noted focal neuro deficits Psych: Alert and oriented to person, place, time, and situation. Appropriate and pleasant affect. A total of 35 minutes of time were spent preparing this complex discharge summary. Pt was discharged on 05/29/22 at 10:04 AM. Patient Condition at Discharge: Stable Plan - Discharge Summary Discharge Rx Participant: Yes New Discharge Prescriptions: No Action No Known Home Medications Discharge Medication List No Known Home Medications 05/05/22 [History] Follow up Appointment(s)/Referral(s): None,Stated [Primary Care Provider] - 1-2 days Activity/Diet/Wound Care/Special Instructions: Activity: As tolerated. Take breaks as needed. Diet: Heart healthy and carb consistent diet. Avoid salts, or foods with hidden salts such as canned or boxed foods and frozen dinners. Extra salt makes your heart work harder and traps the fluid in your body for longer. Special Instructions: Take all of your medications as directed and remember to keep all of your doctor's appointments and follow-up as needed. Strongly recommend avoiding any further episodes of binge drinking and advise cessation of all alcohol use. Thank you for allowing us to participate in your care, it was truly a pleasure having you for our patient!!! Discharge Disposition: HOME SELF-CARE
== END 2022-05-29 10:22 | disposition home or self-care (01) ==
LOC: EC 16:23 → 4SSUR 19:37
PROVIDERS: ADMIT Internal Medicine; ATTEND Internal Medicine
DX: F10.129 Alcohol abuse with intoxication, unspecified (principal); S00.511A Abrasion of lip, initial encounter; N17.9 Acute kidney failure, unspecified; F17.200 Nicotine dependence, unspecified, uncomplicated; E87.0 Hyperosmolality and hypernatremia; E87.8 Other disorders of electrolyte and fluid balance, not elsewhere classified; W17.89XA Other fall from one level to another, initial encounter; Y92.007 Garden or yard of unspecified non-institutional (private) residence as the place of occurrence of the external cause; Z78.1 Physical restraint status; Z74.3 Need for continuous supervision; Y90.8 Blood alcohol level of 240 mg/100 ml or more; Z63.4 Disappearance and death of family member; Z71.41 Alcohol abuse counseling and surveillance of alcoholic; Z71.6 Tobacco abuse counseling; Z83.3 Family history of diabetes mellitus
CPT/HCPCS: 96372; 96374; 99285; 36415; 80053; 80048; 83735; 85025; 72125; 70450; G0378 ×2; G0480; S4990; J2060; J3411; J3486; 80320

== ENCOUNTER 2024-06-16 21:09 | Emergency (ER) | payer OTHER ==
[2024-06-16 21:17] VITALS: BP 139/106; PULSE 77; RESP 16; TEMP 98.1
--- NOTE | 2024-06-16 21:51 | ED ---
Alcohol HPI - General Stated Complaint: ETOH Time Seen by Provider: 06/16/24 21:15 Source: EMS Mode of arrival: EMS Limitations: no limitations - History of Present Illness Initial Comments: Patient is a 33-year-old man brought by ambulance reportedly for intoxication. When I interviewed the patient, he is denying complaints. The patient when questioned about the periorbital swelling states that he fell a couple of days ago. He denies facial or orbital pain. He denies change in vision. MD Complaint: alcohol intoxication Last Drink: just [employer] Associated Symptoms: denies other symptoms Treatments Prior to Arrival: none Chronic Alcohol Use: Yes - Related Data Home Medications Medication Instructions Recorded Confirmed No Known Home Medications 05/05/22 05/28/22 Allergies Allergy/AdvReac Type Severity Reaction Status Date / Time No Known Allergies Allergy Verified 06/19/24 08:20 Review of Systems ROS Statement: Those systems with pertinent positive or pertinent negative responses have been documented in the HPI. ROS Other: All systems not noted in ROS Statement are negative. Constitutional: Denies: fever, weakness Eyes: Denies: vision change Respiratory: Denies: cough, dyspnea Cardiovascular: Denies: chest pain, palpitations, syncope Gastrointestinal: Denies: abdominal pain, vomiting, diarrhea, melena, hematochezia Genitourinary: Denies: dysuria Musculoskeletal: Denies: back pain, arthralgia Skin: Denies: rash Neurological: Denies: headache, weakness, numbness Psychiatric: Denies: depression, suicidal thoughts Past Medical History Past Medical History: No Reported History History of Any Multi-Drug Resistant Organisms: None Reported Past Surgical History: No Surgical Hx Reported Past Anesthesia/Blood Transfusion Reactions: No Reported Reaction Past Psychological History: No Psychological Hx Reported Smoking Status: Current every day smoker Past Alcohol Use History: Daily, Heavy Past Drug Use History: Marijuana - Past Family History Father Family Medical History: Diabetes Mellitus General Exam Limitations: no limitations General appearance: alert, in no apparent distress, appears intoxicated Head exam: Present: normocephalic Eye exam: Present: normal appearance, PERRL, EOMI, nystagmus, periorbital swelling. Absent: scleral icterus, conjunctival injection, periorbital tenderness ENT exam: Present: normal oropharynx Neck exam: Present: normal inspection, full ROM. Absent: tenderness Respiratory exam: Present: normal lung sounds bilaterally. Absent: respiratory distress, wheezes, rales, rhonchi, stridor, chest wall tenderness, accessory muscle use Cardiovascular Exam: Present: regular rate, normal rhythm, normal heart sounds. Absent: systolic murmur, diastolic murmur, rubs, gallop GI/Abdominal exam: Present: soft. Absent: distended, tenderness, guarding, rebound, rigid, mass Extremities exam: Present: normal inspection, full ROM, normal capillary refill. Absent: tenderness Back exam: Present: normal inspection. Absent: CVA tenderness (R), CVA tenderness (L), vertebral tenderness Neurological exam: Present: alert, oriented X3, CN II-XII intact. Absent: motor sensory deficit Skin exam: Present: warm, dry, intact, normal color. Absent: rash Course Vital Signs 06/16/24 21:10 Temperature 98.1 F Pulse Rate 77 Respiratory 16 Rate Blood Pressure 139/106 O2 Sat by Pulse 94 L Oximetry Medical Decision Making - Medical Decision Making Patient had CT of the brain that I interpreted as negative for acute bony injury, negative for acute intracranial hemorrhage. Was pt. sent in by a medical professional or institution (, PA, BUSINESS OPERATIONS COORDINATOR, urgent care, hospital, or fpc...) When possible be specific @ -[No] Did you speak to anyone other than the patient for history (EMS, parent, family, police, friend...)? What history was obtained from this source @ -[No] Did you review nursing and triage notes (agree or disagree)? Why? @ -[I reviewed and agree with nursing and triage notes] Were old charts reviewed (outside hosp., previous admission, EMS record, old EKG, old radiological studies, urgent care reports/EKG's, fpc records)? Report findings @ -[No old charts were reviewed] Differential Diagnosis (chest pain, altered mental status, abdominal pain women, abdominal pain men, vaginal bleeding, weakness, fever, dyspnea, syncope, headache, dizziness, GI bleed, back pain, seizure, CVA, palpatations, mental health, musculoskeletal)? @ -[Differential Musculoskeletal Muscular strain, contusion, ligament sprain, fracture, arthritis, septic arthritis, bursitis, cellulitis, muscle spasm, nerve compression, DVT, arterial occlusion, intracranial hemorrhage, tumor.... This is not meant to be in all inclusive list EKG interpreted by me (3pts min.). @ -[As above] X-rays interpreted by me (1pt min.). @ -[None done] CT interpreted by me (1pt min.). @ -[I interpreted as above U/S interpreted by me (1pt. min.). @ -[None done] What testing was considered but not performed or refused? (CT, X-rays, U/S, labs)? Why? @ -[None] What meds were considered but not given or refused? Why? @ -[None] Did you discuss the management of the patient with other professionals (professionals i.e. , PA, BUSINESS OPERATIONS COORDINATOR, lab, RT, psych nurse, social insurance adviser, jewel sorter, teacher, small business banking officer, senior case manager)? Give summary @ -[No] Was smoking cessation discussed for >3mins.? @ -[No] Was critical care preformed (if so, how long)? @ -[No] Were there social determinants of health that impacted care today? How? (Homelessness, low income, unemployed, alcoholism, drug addiction, transportation, low edu. Level, literacy, decrease access to med. care, shelter, rehab)? @ -[No] Was there de-escalation of care discussed even if they declined (Discuss DNR or withdrawal of care, Hospice)? DNR status @ -[No] What co-morbidities impacted this encounter? (DM, HTN, Smoking, COPD, CAD, Cancer, CVA, ARF, Chemo, Hep., AIDS, mental health diagnosis, sleep apnea, morbid obesity)? @ -[None] Was patient admitted / discharged? Hospital course, mention meds given and route, prescriptions, significant lab abnormalities, going to OR and other pertinent info. @ -[Patient is a 33-year-old man, here for intoxication. He did have recent fall and had head CT and the patient did not want to wait for further results, leaving without completing treatment Undiagnosed new problem with uncertain prognosis? @ -[No] Drug Therapy requiring intensive monitoring for toxicity (Heparin, Nitro, Insulin, Cardizem)? @ -[No] Were any procedures done? @ -[No] Diagnosis/symptom? @ -[Acute facial contusion Left without completing treatment Acute, or Chronic, or Acute on Chronic? @ -[Acute Uncomplicated (without systemic symptoms) or Complicated (systemic symptoms)? @ -[Uncomplicated Side effects of treatment? @ -[No] Exacerbation, Progression, or Severe Exacerbation? @ -[No] Poses a threat to life or bodily function? How? (Chest pain, [place], [place], pneumonia, PE, COPD, DKA, ARF, appy, cholecystitis, CVA, Diverticulitis, Homicidal, Suicidal, threat to staff... and all critical care pts) @ -[Low likelihood Disposition Clinical Impression: Contusion of face, Alcoholic intoxication Disposition: LEFT AGAINST MEDICAL ADVICE Is patient prescribed a controlled substance at d/c from ED?: No Referrals: None,Stated [Primary Care Provider] - 1-2 days
--- NOTE | 2024-06-16 22:11 | CT ---
EXAMINATION TYPE: CT brain wo con CT DLP: 1219.5 mGycm, Automated exposure control for dose reduction was used. DATE OF EXAM: 06/16/2024 9:54 PM COMPARISON: CT brain 05/28/2022. CLINICAL INDICATION:Male, 33 years old with history of fall injury, ETOH brought in by PD fall unknow n.. Contusions to RT eye TECHNIQUE: Brain: Axial CT images of the brain were obtained with coronal and sagittal reformats created and rev iewed. Contrast used: None. Oral contrast used: None. FINDINGS: Brain: Extra-axial spaces: No abnormal extra-axial fluid collections. Ventricular system: Clinically asymmetric, likely no significance. Cerebral parenchyma: No acute intraparenchymal hemorrhage or mass effect. The gupta-white junction is well differentiated. Cerebellum: Unremarkable. Mass effect: No evidence of midline shift. Intracranial vasculature: unremarkable Soft tissues: Normal. Calvarium/osseous structures: No depressed skull fracture. Paranasal sinuses and mastoid air cells: Mild scattered paranasal sinus disease. Visualized orbits: Orbital contents are intact. IMPRESSION: No acute intracranial process.
== END 2024-06-16 23:08 | disposition left against medical advice (07) ==
LOC: EC 21:09
DX: S00.83XA Contusion of other part of head, initial encounter (principal); F10.129 Alcohol abuse with intoxication, unspecified; F17.200 Nicotine dependence, unspecified, uncomplicated; W19.XXXA Unspecified fall, initial encounter
CPT/HCPCS: 70450; 99284

== ENCOUNTER 2024-06-19 08:10 | Emergency (ER) | payer OTHER ==
[2024-06-19] MEDS: ONDANSETRON 4 MG/2 ML VIAL IVP STA (09:02)
[2024-06-19] MEDS: PANTOPRAZOLE 40 MG/10 ML VIAL IVP STA (09:02)
[2024-06-19] MEDS: SODIUM CHLORIDE 0.9% 1,000 ML IV STA (09:03)
[2024-06-19] MEDS: MORPHINE SULFATE 4 MG/ML SYRINGE IVP STA (09:03)
[2024-06-19 09:29] LABS: Basophils # (A) 0.1 k/uL (0-0.2); Basophils % (A) 1 %; Eosinophils # (A) 0.1 k/uL (0-0.7); Eosinophils % (A) 1 %; HCT 47.3 % (39.0-53.0); HGB 16.1 gm/dL (13.0-17.5); Lymphocytes # (A) 0.7 k/uL (1.0-4.8); Lymphocytes % (A) 8 %; MCH 31.2 pg (25.0-35.0); MCHC 34.1 g/dL (31.0-37.0); MCV 91.6 fL (80.0-100.0); Mean Platelet Volume 7.7; Monocytes # (A) 0.5 k/uL (0-1.0); Monocytes % (A) 6 %; Neutrophils # (A) 7.6 k/uL (1.3-7.7); Neutrophils % (A) 83 %; Platelet Count 158 k/uL (150-450); RBC 5.17 m/uL (4.30-5.90); WBC 9.2 k/uL (3.8-10.6)
[2024-06-19 09:30] LABS: Appearance,Urine Cloudy (Clear); Bilirubin,Urine Negative (Negative); Blood,Urine Small (Negative); Color,Urine Yellow; Glucose,Urine (UA) Negative (Negative); Hyaline Casts,Urine 3 /lpf (0-2); Ketones,Urine Negative (Negative); Leukocyte Esterase,Urine Trace (Negative); Mucus,Urine Moderate /hpf; Nitrite,Urine Negative (Negative); Protein,Urine 1+ (Negative); RBC,Urine 4 /hpf (0-5); Specific Gravity,Urine 1.033 (1.001-1.035); Squamous Epithelial Cell,Urine <1 /hpf (0-4); WBC,Urine 3 /hpf (0-5)
[2024-06-19 09:38] LABS: INR 0.9 (<1.2); Partial Thromboplastin Time 22.2 sec (22.0-30.0); Prothrombin Time 10.4 sec (10.0-12.5)
[2024-06-19 09:53] LABS: ALT 69 U/L (4-49); AST 76 U/L (17-59); African American GFR (CKD) >90 (>60 ml/min/1.73 sqM); Albumin 5.3 g/dL (3.5-5.0); Alkaline Phosphatase 63 U/L (38-126); Amylase 71 U/L (30-110); Anion Gap 11 mmol/L; Blood Urea Nitrogen 27 mg/dL (9-20); Calcium 10.2 mg/dL (8.4-10.2); Carbon Dioxide 30 mmol/L (22-30); Chloride 98 mmol/L (98-107); Glucose 143 mg/dL (74-99); Lipase 84 U/L (23-300); Non-African American GFR(CKD) >90 (>60 ml/min/1.73 sqM); Potassium 4.2 mmol/L (3.5-5.1); Sodium 139 mmol/L (137-145); Total Bilirubin 1.3 mg/dL (0.2-1.3); Total Protein 8.8 g/dL (6.3-8.2)
--- NOTE | 2024-06-19 10:58 | ED ---
General Adult HPI - General Chief complaint: Abdominal Pain Stated complaint: Abd pain, vomiting Time Seen by Provider: 06/19/24 08:40 Source: patient, RN notes reviewed, old records reviewed Mode of arrival: ambulatory Limitations: no limitations - History of Present Illness Initial comments: Patient is a 33-year-old male presents emergency department with 1 day of nausea, vomiting, abdominal pain. States pain has been severe since yesterday. Has been having issues with eating and drinking. States he has had nonbilious nonbloody emesis. Chart says that patient drinks alcohol regularly with which she denies. States he has never been through withdrawals. Does smoke some marijuana. Denies any other acute complaints at this time. Denies chest pain or shortness of breath. Denies fevers or chills or sick contacts. No urinary complaints. No constipation or diarrhea. Presents for further evaluation. - Related Data Home Medications Medication Instructions Recorded Confirmed No Known Home Medications 05/05/22 05/28/22 Allergies Allergy/AdvReac Type Severity Reaction Status Date / Time No Known Allergies Allergy Verified 06/19/24 08:20 Review of Systems ROS Statement: Those systems with pertinent positive or pertinent negative responses have been documented in the HPI. Review of Systems: CONST: Denies fever EYES: Denies blurry vision ENT: Denies nasal congestion C/V: Denies Chest pain RESP: Denies shortness of breath GI: Endorses abdominal pain : Denies dysuria SKIN: Denies rash. MSK: Denies joint pain. NEURO: Denies headache ROS Other: All systems not noted in ROS Statement are negative. Past Medical History Past Medical History: No Reported History History of Any Multi-Drug Resistant Organisms: None Reported Past Surgical History: No Surgical Hx Reported Past Anesthesia/Blood Transfusion Reactions: No Reported Reaction Past Psychological History: No Psychological Hx Reported Smoking Status: Current every day smoker Past Alcohol Use History: Daily, Heavy Past Drug Use History: Marijuana - Past Family History Father Family Medical History: Diabetes Mellitus General Exam - General Exam Comments Initial Comments: General: Appears in mild distress secondary to abdominal pain. HEAD: Normal with no signs of head trauma. EYES: PERRLA, EOMI, conjunctiva normal, no discharge. ENT: Hearing grossly intact, normal oropharynx. RESPIRATORY: Clear breath sounds bilaterally. No wheezes, rales, or rhonchi. C/V: Regular rate and rhythm. S1 and S2 auscultated, no edema, peripheral pulses 2+ and intact throughout ABD: Abdomen soft, nondistended. Tender palpation periumbilically and in the epigastric region. No guarding or rebound tenderness. No peritoneal signs. EXT: Normal range of motion, no obvious deformity SKIN: No rashes or lesions observed on exposed skin. NEURO: Alert and oriented x 4. Does not appear to be acutely intoxicated with alcohol. Limitations: no limitations Course Vital Signs 06/19/24 06/19/24 06/19/24 08:18 08:20 10:00 Temperature 98.8 F Pulse Rate 78 82 68 Respiratory 18 20 18 Rate Blood Pressure 130/90 135/82 136/83 O2 Sat by Pulse 98 98 99 Oximetry 06/19/24 06/19/24 06/19/24 11:00 12:00 13:00 Temperature 97.7 F Pulse Rate 73 87 73 Respiratory 16 18 16 Rate Blood Pressure 146/89 127/81 133/93 O2 Sat by Pulse 98 97 96 Oximetry Medical Decision Making - Medical Decision Making Was pt. sent in by a medical professional or institution (, PA, [employer], urgent care, hospital, or correction...) When possible be specific @ -No Did you speak to anyone other than the patient for history (EMS, parent, family, police, friend...)? What history was obtained from this source @ -No Did you review nursing and triage notes (agree or disagree)? Why? @ -I reviewed and agree with nursing and triage notes Were old charts reviewed (outside hosp., previous admission, EMS record, old EKG, old radiological studies, urgent care reports/EKG's, correction records)? Report findings @ -Compared with EKG from May 05, 2022, with no obvious acute changes on EKG. Differential Diagnosis (chest pain, altered mental status, abdominal pain women, abdominal pain men, vaginal bleeding, weakness, fever, dyspnea, syncope, headache, dizziness, GI bleed, back pain, seizure, CVA, palpatations, mental health, musculoskeletal)? @ -Differential Abdominal Pain Men: Appendicitis, cholecystitis, diverticulosis, ischemic bowel, pancreatitis, hepatitis, UTI, gastroenteritis, AAA, incarcerated hernia, bowel obstruction, constipation, inflammatory bowel, hepatitis, peptic ulcer disease, splenic infarction, perforated viscus, testicular torsion, this is not meant to be an all-inclusive list EKG interpreted by me (3pts min.). @ -As above X-rays interpreted by me (1pt min.). @ -None done CT interpreted by me (1pt min.). @ -CT abdomen pelvis shows findings concerning for enteritis versus ileus. Based on symptoms, likely enteritis. U/S interpreted by me (1pt. min.). @ -None done What testing was considered but not performed or refused? (CT, X-rays, U/S, labs)? Why? @ -None What meds were considered but not given or refused? Why? @ -None Did you discuss the management of the patient with other professionals (professionals i.e. DrBrit, PA, [employer], lab, RT, psych nurse, psychosocial rehabilitation counselor, fruit thinner, teacher, credit administration officer, case management director)? Give summary @ -No Was smoking cessation discussed for >3mins.? @ -No Was critical care preformed (if so, how long)? @ -No Were there social determinants of health that impacted care today? How? (Homelessness, low income, unemployed, alcoholism, drug addiction, transportation, low edu. Level, literacy, decrease access to med. care, fci, rehab)? @ -No Was there de-escalation of care discussed even if they declined (Discuss DNR or withdrawal of care, Hospice)? DNR status @ -No What co-morbidities impacted this encounter? (DM, HTN, Smoking, COPD, CAD, Cancer, CVA, ARF, Chemo, Hep., AIDS, mental health diagnosis, sleep apnea, morbid obesity)? @ -Alcohol abuse, marijuana use Was patient admitted / discharged? Hospital course, mention meds given and route, prescriptions, significant lab abnormalities, going to OR and other pertinent info. @ -Patient presents emergency department abdominal pain, nausea and vomiting. Has been ongoing for 1 day. Vital signs within acceptable limits. He will be symptomatically treat with IV fluids, Protonix, Zofran, morphine and we will obtain abdominal workup. Patient in agreement this plan. Vital signs within acceptable limits. EKG shows no signs of acute ischemia. Laboratory studies are within acceptable limits except for slightly elevated AST and ALT of 76 and 69 which is really insignificant.CT imaging shows findings concerning for enteritis versus small bowel obstruction or ileus. Patient has been passing gas and having bowel movements. Likely enteritis. On reevaluation, patient is feeling improved. Tolerating oral intake. Will be discharged home at this time. He was in agreement this plan. Patient given a starter pack of Zofran. We discussed diet and recommended bland diet and to avoid fried and fatty foods. Recommended stopping drinking alcohol. I instructed the patient to follow up with their PCP in the next 1-3 days. I explained that the patient should return to the emergency department if they experience any worsening symptoms. Strict return precautions were discussed with the patient. The patient expressed understanding of these instructions. I answered all questions that the patient had. The patient was discharged home in good condition with their prescriptions and follow up information. Undiagnosed new problem with uncertain prognosis? @ -No Drug Therapy requiring intensive monitoring for toxicity (Heparin, Nitro, In sulin, Cardizem)? @ -No Were any procedures done? @ -No Diagnosis/symptom? @ -Enteritis Acute, or Chronic, or Acute on Chronic? @ -Acute Uncomplicated (without systemic symptoms) or Complicated (systemic symptoms)? @ -Uncomplicated Side effects of treatment? @ -None Exacerbation, Progression, or Severe Exacerbation] @ -No Poses a threat to life or bodily function? @ -Unlikely - Lab Data Result diagrams: 06/19/24 08:42 06/19/24 08:42 Lab Results 06/19/24 06/19/24 06/19/24 Range/Units 08:42 08:42 08:42 WBC 9.2 (3.8-10.6) k/uL RBC 5.17 (4.30-5.90) m/uL Hgb 16.1 (13.0-17.5) gm/dL Hct 47.3 (39.0-53.0) % MCV 91.6 (80.0-100.0) fL MCH 31.2 (25.0-35.0) pg MCHC 34.1 (31.0-37.0) g/dL RDW 13.0 (11.5-15.5) % Plt Count 158 (150-450) k/uL MPV 7.7 Neutrophils % 83 % Lymphocytes % 8 % Monocytes % 6 % Eosinophils % 1 % Basophils % 1 % Neutrophils # 7.6 (1.3-7.7) k/uL Lymphocytes # 0.7 L (1.0-4.8) k/uL Monocytes # 0.5 (0-1.0) k/uL Eosinophils # 0.1 (0-0.7) k/uL Basophils # 0.1 (0-0.2) k/uL PT 10.4 (10.0-12.5) sec INR 0.9 (<1.2) APTT 22.2 (22.0-30.0) sec Sodium 139 (137-145) mmol/L Potassium 4.2 (3.5-5.1) mmol/L Chloride 98 (98-107) mmol/L Carbon Dioxide 30 (22-30) mmol/L Anion Gap 11 mmol/L BUN 27 H (9-20) mg/dL Creatinine 0.95 (0.66-1.25) mg/dL Est GFR (CKD-EPI)AfAm >90 (>60 ml/min/1.73 sqM) Est GFR (CKD-EPI)NonAf >90 (>60 ml/min/1.73 sqM) Glucose 143 H (74-99) mg/dL Plasma Lactic Acid Richard (0.7-2.0) mmol/L Calcium 10.2 (8.4-10.2) mg/dL Total Bilirubin 1.3 (0.2-1.3) mg/dL AST 76 H (17-59) U/L ALT 69 H (4-49) U/L Alkaline Phosphatase 63 (38-126) U/L Total Protein 8.8 H (6.3-8.2) g/dL Albumin 5.3 H (3.5-5.0) g/dL Amylase 71 (30-110) U/L Lipase 84 (23-300) U/L Urine Color Urine Appearance (Clear) Urine pH (5.0-8.0) Ur Specific Williams (1.001-1.035) Urine Protein (Negative) Urine Glucose (UA) (Negative) Urine Ketones (Negative) Urine Blood (Negative) Urine Nitrite (Negative) Urine Bilirubin (Negative) Urine Urobilinogen (<2.0) mg/dL Ur Leukocyte Esterase (Negative) Urine RBC (0-5) /hpf Urine WBC (0-5) /hpf Ur Squamous Epith Cells (0-4) /hpf Hyaline Casts (0-2) /lpf Urine Mucus (None) /hpf Influenza Type A (PCR) (Not Detectd) Influenza Type B (PCR) (Not Detectd) RSV (PCR) (Not Detectd) SARS-CoV-2 (PCR) (Not Detectd) 06/19/24 06/19/24 06/19/24 Range/Units 08:42 08:43 08:43 WBC (3.8-10.6) k/uL RBC (4.30-5.90) m/uL Hgb (13.0-17.5) gm/dL Hct (39.0-53.0) % MCV (80.0-100.0) fL MCH (25.0-35.0) pg MCHC (31.0-37.0) g/dL RDW (11.5-15.5) % Plt Count (150-450) k/uL MPV Neutrophils % % Lymphocytes % % Monocytes % % Eosinophils % % Basophils % % Neutrophils # (1.3-7.7) k/uL Lymphocytes # (1.0-4.8) k/uL Monocytes # (0-1.0) k/uL Eosinophils # (0-0.7) k/uL Basophils # (0-0.2) k/uL PT (10.0-12.5) sec INR (<1.2) APTT (22.0-30.0) sec Sodium (137-145) mmol/L Potassium (3.5-5.1) mmol/L Chloride (98-107) mmol/L Carbon Dioxide (22-30) mmol/L Anion Gap mmol/L BUN (9-20) mg/dL Creatinine (0.66-1.25) mg/dL Est GFR (CKD-EPI)AfAm (>60 ml/min/1.73 sqM) Est GFR (CKD-EPI)NonAf (>60 ml/min/1.73 sqM) Glucose (74-99) mg/dL Plasma Lactic Acid Richard 1.0 (0.7-2.0) mmol/L Calcium (8.4-10.2) mg/dL Total Bilirubin (0.2-1.3) mg/dL AST (17-59) U/L ALT (4-49) U/L Alkaline Phosphatase (38-126) U/L Total Protein (6.3-8.2) g/dL Albumin (3.5-5.0) g/dL Amylase (30-110) U/L Lipase (23-300) U/L Urine Color Yellow Urine Appearance Cloudy (Clear) Urine pH 6.0 (5.0-8.0) Ur Specific Williams 1.033 (1.001-1.035) Urine Protein 1+ H (Negative) Urine Glucose (UA) Negative (Negative) Urine Ketones Negative (Negative) Urine Blood Small H (Negative) Urine Nitrite Negative (Negative) Urine Bilirubin Negative (Negative) Urine Urobilinogen 2.0 (<2.0) mg/dL Ur Leukocyte Esterase Trace H (Negative) Urine RBC 4 (0-5) /hpf Urine WBC 3 (0-5) /hpf Ur Squamous Epith Cells <1 (0-4) /hpf Hyaline Casts 3 H (0-2) /lpf Urine Mucus Moderate H (None) /hpf Influenza Type A (PCR) Not Detected (Not Detectd) Influenza Type B (PCR) Not Detected (Not Detectd) RSV (PCR) Not Detected (Not Detectd) SARS-CoV-2 (PCR) Not Detected (Not Detectd) - EKG Data -: EKG Interpreted by Me EKG Comments: 12-lead Electrocardiogram Interpretation Note EKG was reviewed and interpreted by myself. 12-lead ECG performed at 0855 is interpreted by me as revealing normal sinus rhythm at a rate of 76 beats per minute. Romeo is normal. HI interval is 149 ms, QRS duration is 89 ms, QTc is 381 ms. Nonspecific J-point elevation present throughout.. There were no ST or T wave abnormalities to suggest myocardial ischemia or injury. R wave progress ion across the precordium was satisfactory. By my interpretation this EKG is non-diagnostic for acute ischemia. Disposition Clinical Impression: Enteritis Disposition: HOME SELF-CARE Condition: Good Instructions (If sedation given, give patient instructions): Enteritis (ED) Is patient prescribed a controlled substance at d/c from ED?: No Referrals: None,Stated [Primary Care Provider] - 1-2 days Time of Disposition: 12:35
--- NOTE | 2024-06-19 12:14 | CT ---
EXAMINATION TYPE: CT abdomen pelvis w con CT DLP: 699.9 mGycm, Automated exposure control for dose reduction was used. DATE OF EXAM: 06/19/2024 10:32 AM COMPARISON: CT abdomen pelvis most recent from CLINICAL INDICATION:Male, 33 years old with history of abdominal pain. Mid; abdominal pain. Mid, vomi ting and nausea TECHNIQUE: Axial CT abdomen pelvis w con;Sagittal and coronal reformats were created on a separate w orkstation. Contrast used:100 mL of Isovue 300 with IV Contrast, (none if empty) Oral contrast used: without Oral Contrast (none if empty) FINDINGS: LOWER CHEST: Unremarkable ABDOMEN LIVER: Unremarkable GALLBLADDER AND BILE DUCTS: Unremarkable. PANCREAS: Unremarkable. SPLEEN: Unremarkable. ADRENAL GLANDS: Unremarkable. KIDNEYS AND URETERS: No evidence of hydronephrosis or renal calculus. The ureters are unremarkable. PELVIS BLADDER: Unremarkable REPRODUCTIVE: Unremarkable. ABDOMEN & PELVIS STOMACH AND BOWEL: Numerous, nondistended loops of small intestine are present containing fluid and m ild mural enhancement. PERITONEUM/RETROPERITONEUM: No evidence of pneumoperitoneum or free fluid. VASCULATURE: No evidence of aortic aneurysm. MUSCULOSKELETAL: No acute osseous abnormalities LYMPH NODES: No gross evidence for lymphadenopathy. SOFT TISSUE/ABDOMINAL WALL: Unremarkable IMPRESSION: 1. Numerous, nondistended loops of small intestine are present containing fluid and mild mural enhan cement. Consider enteritis, ileus or less likely obstruction. The most likely differential diagnosti c consideration can be narrowed with clinical correlation.
[2024-06-19] MEDS: ONDANSETRON 4 MG ODT STARTER PACK 2 TAB BTL PO STA (12:58)
[2024-06-19 13:01] VITALS: BP 133/93; PULSE 73; RESP 16; TEMP 97.7
== END 2024-06-19 13:01 | disposition home or self-care (01) ==
LOC: EC 08:10
DX: K52.9 Noninfective gastroenteritis and colitis, unspecified (principal); F10.10 Alcohol abuse, uncomplicated; F12.90 Cannabis use, unspecified, uncomplicated
CPT/HCPCS: 36415; 93005; 80053; 82150; 83605; 83690; 85025; 85610; 85730; 81001; 87636; 74177; 99284; 96374; 96375 ×2; 96361 ×3; J2270; J2405; S0119; Q9967; J2470

== ENCOUNTER 2025-01-26 18:19 | Emergency (ER) | payer OTHER ==
[2025-01-26 18:29] VITALS: BP 159/99; PULSE 118; RESP 17; TEMP 98.8
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
== END 2025-01-26 20:08 | disposition home or self-care (01) ==
LOC: EC 18:19
DX: S00.83XA Contusion of other part of head, initial encounter (principal); F17.200 Nicotine dependence, unspecified, uncomplicated; Y04.0XXA Assault by unarmed brawl or fight, initial encounter; Y92.009 Unspecified place in unspecified non-institutional (private) residence as the place of occurrence of the external cause
CPT/HCPCS: 36415; 80320; 99282

== ENCOUNTER 2025-01-28 22:09 | Emergency (ER) | payer OTHER ==
[2025-01-28 22:15] VITALS: RESP 18
[2025-01-28] MEDS ORDERED: LORazepam 2 MG/ML INJ IV PRN ×3 (22:22)
[2025-01-28] MEDS ORDERED: LORazepam 0.5 MG TAB PO PRN (22:22)
[2025-01-28] MEDS ORDERED: LORazepam 1 MG TAB PO PRN ×3 (22:22)
--- NOTE | 2025-01-28 22:23 | ED ---
Psych HPI <Terry Hopkins - Last Filed: 01/29/25 11:01> - General Source: patient, RN notes reviewed, old records reviewed Mode of arrival: ambulatory - History of Present Illness MD Complaint: suicidal ideation, feels depressed, altered mental status -: days(s) Associated Psychiatric Symptoms: depression, suicidal ideation Quality: constant Context: recent alcohol abuse Associated Symptoms: denies other symptoms Treatments Prior to Arrival: placed on mental health hold If Self Harm: admits thoughts of self harm <Terry Arechiga - Last Filed: 02/03/25 20:15> - General Chief Complaint: Psychiatric Symptoms Stated Complaint: Suicidal Time Seen by Provider: 01/28/25 22:12 - History of Present Illness Initial Comments: This is a 34-year-old male presented to the ER for alcohol intoxication. Recent ER visit for custodial clearance, patient does admit to alcohol use today and making complaints of suicidal ideation (Terry Arechiga) - Related Data Home Medications Medication Instructions Recorded Confirmed No Known Home Medications 05/05/22 01/29/25 Allergies Allergy/AdvReac Type Severity Reaction Status Date / Time No Known Allergies Allergy Verified 01/29/25 09:56 Review of Systems ROS Other: All systems not noted in ROS Statement are negative. <Terry Hopkins - Last Filed: 01/29/25 11:01> ROS Other: All systems not noted in ROS Statement are negative. <Terry Arechiga - Last Filed: 02/03/25 20:15> ROS Statement: Those systems with pertinent positive or pertinent negative responses have been documented in the HPI. Past Medical History Past Medical History: No Reported History History of Any Multi-Drug Resistant Organisms: None Reported Past Surgical History: No Surgical Hx Reported Past Anesthesia/Blood Transfusion Reactions: No Reported Reaction Past Psychological History: Anxiety, Depression Smoking Status: Current every day smoker Past Alcohol Use History: Daily, Heavy Past Drug Use History: Marijuana - Past Family History Father Family Medical History: Diabetes Mellitus <Terry Arechiga - Last Filed: 02/03/25 20:15> General Exam Limitations: no limitations General appearance: alert, in no apparent distress, appears intoxicated Head exam: Present: atraumatic, normocephalic, normal inspection Eye exam: Present: normal appearance, PERRL, EOMI. Absent: scleral icterus, conjunctival injection, periorbital swelling ENT exam: Present: normal exam, mucous membranes moist Neck exam: Present: normal inspection. Absent: tenderness, meningismus, lymphadenopathy Respiratory exam: Present: normal lung sounds bilaterally. Absent: respiratory distress, wheezes, rales, rhonchi, stridor Cardiovascular Exam: Present: normal rhythm, tachycardia, normal heart sounds. Absent: systolic murmur, diastolic murmur, rubs, gallop, clicks GI/Abdominal exam: Present: soft, normal bowel sounds. Absent: distended, tenderness, guarding, rebound, rigid Extremities exam: Present: normal inspection, full ROM, normal capillary refill. Absent: tenderness, pedal edema, joint swelling, calf tenderness Back exam: Present: normal inspection Neurological exam: Present: alert, oriented X3, CN II-XII intact Psychiatric exam: Present: normal affect, normal mood Skin exam: Present: warm, dry, intact, normal color. Absent: rash <Terry Arechiga - Last Filed: 02/03/25 20:15> Course <Trery Arechiga - Last Filed: 02/03/25 20:15> Vital Signs 01/28/25 01/29/25 01/29/25 22:10 06:37 11:17 Temperature 98.1 F 97.5 F L Pulse Rate 127 H 88 66 Respiratory 18 18 18 Rate Blood Pressure 128/83 123/90 151/81 O2 Sat by Pulse 99 98 100 Oximetry - Reevaluation(s) Reevaluation #1: 01/28/25 22:50 Medical records reviewed (Terry Arechiga) Reevaluation #2: No change in activity or symptoms here in the ER (Terry Arechiga) Reevaluation #3: Patient is no longer intoxicated (Terry Arechiga) Reevaluation #4: Medically clear for psychiatric evaluation (Terry Arechiga) Reevaluation #5: Differential Mental Health Depression, anxiety, bipolar, psychosis, schizophrenia, borderline personality, situational depression, adjustment disorder, behavioral disorder, brain tumor, malingering, substance abuse, encephalopathy, medication reaction, dementia, hypothyroidism, degenerative neurologic disorder, lupus.... This is not meant to be all-inclusive list (Terry Arechiga) Medical Decision Making - Lab Data Result diagrams: 01/28/25 22:47 01/28/25 22:47 <Terry Hopkins - Last Filed: 01/29/25 11:01> - Lab Data Result diagrams: 01/28/25 22:47 01/28/25 22:47 <Terry Arechiga - Last Filed: 02/03/25 20:15> - Medical Decision Making Was patient admitted / discharged? Hospital course, mention meds given and route, prescriptions, significant lab abnormalities, going to OR and other pertinent info. @ -Patient was signed out to me by Dr. Arechiga at 7 AM. Patient was sober EPS came down evaluated the patient. I went back in and spoke with the patient he stated he was not suicidal at all and felt safe going home and he agreed to the safety plan that was discussed with him by EPS. Undiagnosed new problem with uncertain prognosis? @ -No Drug Therapy requiring intensive monitoring for toxicity (Heparin, Nitro, Insulin, Cardizem)? @ -No Were any procedures done? @ -No Diagnosis/symptom? @ -Situational depression Acute, or Chronic, or Acute on Chronic? @ -Acute Uncomplicated (without systemic symptoms) or Complicated (systemic symptoms)? @ -Complicated Side effects of treatment? @ -No Exacerbation, Progression, or Severe Exacerbation? @ -No Poses a threat to life or bodily function? How? (Chest pain, USA, NM, pneumonia, PE, COPD, DKA, ARF, appy, cholecystitis, CVA, Diverticulitis, Homicidal, Suicidal, threat to staff... and all critical care pts) @ -No Diagnosis/symptom? @ -Alcohol intoxication Acute, or Chronic, or Acute on Chronic? @ -Acute Uncomplicated (without systemic symptoms) or Complicated (systemic symptoms)? @ -Complicated Side effects of treatment? @ -None Exacerbation, Progression, or Severe Exacerbation] @ -No Poses a threat to life or bodily function? @ -No (Terry Hopkins) - Lab Data Lab Results 01/28/25 01/28/25 01/28/25 Range/Units 08:45 08:45 22:47 WBC 8.2 (3.8-10.6) k/uL RBC 5.29 (4.30-5.90) m/uL Hgb 15.4 (13.0-17.5) gm/dL Hct 47.4 (39.0-53.0) % MCV 89.7 (80.0-100.0) fL MCH 29.2 (25.0-35.0) pg MCHC 32.6 (31.0-37.0) g/dL RDW 12.3 (11.5-15.5) % Plt Count 360 (150-450) k/uL MPV 6.5 Neutrophils % 55 % Lymphocytes % 31 % Monocytes % 8 % Eosinophils % 4 % Basophils % 1 % Neutrophils # 4.5 (1.3-7.7) k/uL Lymphocytes # 2.5 (1.0-4.8) k/uL Monocytes # 0.6 (0-1.0) k/uL Eosinophils # 0.3 (0-0.7) k/uL Basophils # 0.1 (0-0.2) k/uL Sodium (137-145) mmol/L Potassium (3.5-5.1) mmol/L Chloride (98-107) mmol/L Carbon Dioxide (22-30) mmol/L Anion Gap mmol/L BUN (9-20) mg/dL Creatinine (0.66-1.25) mg/dL Est GFR (CKD-EPI)AfAm (>60 ml/min/1.73 sqM) Est GFR (CKD-EPI)NonAf (>60 ml/min/1.73 sqM) Glucose (74-99) mg/dL Calcium (8.4-10.2) mg/dL Phosphorus (2.5-4.5) mg/dL Magnesium (1.6-2.3) mg/dL Total Bilirubin (0.2-1.3) mg/dL AST (17-59) U/L ALT (4-49) U/L Alkaline Phosphatase (38-126) U/L Total Protein (6.3-8.2) g/dL Albumin (3.5-5.0) g/dL Lipase (23-300) U/L Urine Color Yellow Urine Appearance Clear (Clear) Urine pH 5.0 (5.0-8.0) Ur Specific [place] 1.026 (1.001-1.035) Urine Protein Negative (Negative) Urine Glucose (UA) Negative (Negative) Urine Ketones Negative (Negative) Urine Blood Trace H (Negative) Urine Nitrite Negative (Negative) Urine Bilirubin Negative (Negative) Urine Urobilinogen <2.0 (<2.0) mg/dL Ur Leukocyte Esterase Negative (Negative) Urine RBC 1 (0-5) /hpf Urine WBC 1 (0-5) /hpf Hyaline Casts 1 (0-2) /lpf Urine Mucus Rare H (None) /hpf Urine Opiates Screen Not Detected (NotDetected) Ur Oxycodone Screen Not Detected (NotDetected) Urine Methadone Screen Not Detected (NotDetected) Ur Barbiturates Screen Not Detected (NotDetected) U Tricyclic Antidepress Not Detected (NotDetected) Ur Phencyclidine Scrn Not Detected (NotDetected) Ur Amphetamines Screen Not Detected (NotDetected) U Methamphetamines Scrn Not Detected (NotDetected) U Benzodiazepines Scrn Not Detected (NotDetected) Urine Cocaine Screen Not Detected (NotDetected) U Marijuana (THC) Screen Not Detected (NotDetected) Serum Alcohol mg/dL 01/28/25 Range/Units 22:47 WBC (3.8-10.6) k/uL RBC (4.30-5.90) m/uL Hgb (13.0-17.5) gm/dL Hct (39.0-53.0) % MCV (80.0-100.0) fL MCH (25.0-35.0) pg MCHC (31.0-37.0) g/dL RDW (11.5-15.5) % Plt Count (150-450) k/uL MPV Neutrophils % % Lymphocytes % % Monocytes % % Eosinophils % % Basophils % % Neutrophils # (1.3-7.7) k/uL Lymphocytes # (1.0-4.8) k/uL Monocytes # (0-1.0) k/uL Eosinophils # (0-0.7) k/uL Basophils # (0-0.2) k/uL Sodium 149 H (137-145) mmol/L Potassium 4.2 (3.5-5.1) mmol/L Chloride 107 (98-107) mmol/L Carbon Dioxide 30 (22-30) mmol/L Anion Gap 12 mmol/L BUN 15 (9-20) mg/dL Creatinine 0.97 (0.66-1.25) mg/dL Est GFR (CKD-EPI)AfAm >90 (>60 ml/min/1.73 sqM) Est GFR (CKD-EPI)NonAf >90 (>60 ml/min/1.73 sqM) Glucose 114 H (74-99) mg/dL Calcium 9.7 (8.4-10.2) mg/dL Phosphorus 5.1 H (2.5-4.5) mg/dL Magnesium 2.0 (1.6-2.3) mg/dL Total Bilirubin 0.5 (0.2-1.3) mg/dL AST 51 (17-59) U/L ALT 30 (4-49) U/L Alkaline Phosphatase 70 (38-126) U/L Total Protein 8.7 H (6.3-8.2) g/dL Albumin 5.0 (3.5-5.0) g/dL Lipase 205 (23-300) U/L Urine Color Urine Appearance (Clear) Urine pH (5.0-8.0) Ur Specific [place] (1.001-1.035) Urine Protein (Negative) Urine Glucose (UA) (Negative) Urine Ketones (Negative) Urine Blood (Negative) Urine Nitrite (Negative) Urine Bilirubin (Negative) Urine Urobilinogen (<2.0) mg/dL Ur Leukocyte Esterase (Negative) Urine RBC (0-5) /hpf Urine WBC (0-5) /hpf Hyaline Casts (0-2) /lpf Urine Mucus (None) /hpf Urine Opiates Screen (NotDetected) Ur Oxycodone Screen (NotDetected) Urine Methadone Screen (NotDetected) Ur Barbiturates Screen (NotDetected) U Tricyclic Antidepress (NotDetected) Ur Phencyclidine Scrn (NotDetected) Ur Amphetamines Screen (NotDetected) U Methamphetamines Scrn (NotDetected) U Benzodiazepines Scrn (NotDetected) Urine Cocaine Screen (NotDetected) U Marijuana (THC) Screen (NotDetected) Serum Alcohol 278 H* mg/dL Disposition Is patient prescribed a controlled substance at d/c from ED?: No Time of Disposition: 11:02 <Terry Hopkins - Last Filed: 01/29/25 11:01> <Terry Arechiga - Last Filed: 02/03/25 20:15> Clinical Impression: Alcoholic intoxication, Altered mental status, Situational depression Disposition: HOME SELF-CARE Condition: Fair Instructions (If sedation given, give patient instructions): Depression (ED), Altered Mental Status (ED) Referrals: None,Stated [Primary Care Provider] - 1-2 days
[2025-01-28] MEDS: SODIUM CHLORIDE 0.9% 1,000 ML IV STA (22:59)
[2025-01-28 23:02] LABS: Basophils # (A) 0.1 k/uL (0-0.2); Basophils % (A) 1 %; Eosinophils # (A) 0.3 k/uL (0-0.7); Eosinophils % (A) 4 %; HCT 47.4 % (39.0-53.0); HGB 15.4 gm/dL (13.0-17.5); Lymphocytes # (A) 2.5 k/uL (1.0-4.8); Lymphocytes % (A) 31 %; MCH 29.2 pg (25.0-35.0); MCHC 32.6 g/dL (31.0-37.0); MCV 89.7 fL (80.0-100.0); Mean Platelet Volume 6.5; Monocytes # (A) 0.6 k/uL (0-1.0); Monocytes % (A) 8 %; Neutrophils # (A) 4.5 k/uL (1.3-7.7); Neutrophils % (A) 55 %; Platelet Count 360 k/uL (150-450); RBC 5.29 m/uL (4.30-5.90); RDW 12.3 % (11.5-15.5); WBC 8.2 k/uL (3.8-10.6)
[2025-01-28 23:17] LABS: ALT 30 U/L (4-49); AST 51 U/L (17-59); African American GFR (CKD) >90 (>60 ml/min/1.73 sqM); Alkaline Phosphatase 70 U/L (38-126); Anion Gap 12 mmol/L; Blood Urea Nitrogen 15 mg/dL (9-20); Calcium 9.7 mg/dL (8.4-10.2); Carbon Dioxide 30 mmol/L (22-30); Chloride 107 mmol/L (98-107); Glucose 114 mg/dL (74-99); Lipase 205 U/L (23-300); Non-African American GFR(CKD) >90 (>60 ml/min/1.73 sqM); Phosphorus 5.1 mg/dL (2.5-4.5); Potassium 4.2 mmol/L (3.5-5.1); Sodium 149 mmol/L (137-145); Total Bilirubin 0.5 mg/dL (0.2-1.3); Total Protein 8.7 g/dL (6.3-8.2)
[2025-01-28 23:22] LABS: Alcohol 278 mg/dL
[2025-01-29] MEDS: ZIPRASIDONE 20 MG VIAL IM STA (00:55)
[2025-01-29 06:38] VITALS: TEMP 97.5
[2025-01-29] MEDS: MULTIVITAMINS, THERA 1 EACH TAB PO SCH (08:44)
[2025-01-29 08:59] LABS: Appearance,Urine Clear (Clear); Bilirubin,Urine Negative (Negative); Blood,Urine Trace (Negative); Color,Urine Yellow; Glucose,Urine (UA) Negative (Negative); Hyaline Casts,Urine 1 /lpf (0-2); Ketones,Urine Negative (Negative); Leukocyte Esterase,Urine Negative (Negative); Mucus,Urine Rare /hpf; Nitrite,Urine Negative (Negative); Protein,Urine Negative (Negative); RBC,Urine 1 /hpf (0-5); Specific Gravity,Urine 1.026 (1.001-1.035); Urobilinogen,Urine <2.0 mg/dL (<2.0); WBC,Urine 1 /hpf (0-5)
[2025-01-29 09:22] LABS: Amphetamine Screen,Urine Not Detected (NotDetected); Barbiturate Screen,Urine Not Detected (NotDetected); Benzodiazepines Screen,Urine Not Detected (NotDetected); Cocaine Screen,Urine Not Detected (NotDetected); Methadone Screen, Urine Not Detected (NotDetected); Opiate Screen,Urine Not Detected (NotDetected); Oxycodone Screen, Urine Not Detected (NotDetected); Phencyclidine Screen,Urine Not Detected (NotDetected); Tricyclic Antidepressant,Urine Not Detected (NotDetected); Urn Cannabinoid Scrn Not Detected (NotDetected)
[2025-01-29] MEDS: FOLIC ACID 1 MG TAB PO SCH (09:27)
[2025-01-29 11:20] VITALS: BP 151/81; PULSE 66
== END 2025-01-29 11:19 | disposition home or self-care (01) ==
LOC: EC 22:09
DX: R41.82 Altered mental status, unspecified (principal); F10.129 Alcohol abuse with intoxication, unspecified; F43.21 Adjustment disorder with depressed mood; F17.200 Nicotine dependence, unspecified, uncomplicated; Y90.8 Blood alcohol level of 240 mg/100 ml or more
CPT/HCPCS: 36415; 80053; 83690; 83735; 84100; 85025; 81001; 80306; 80320; 99285; 96360; 96361; 96372; J3486